=== PATIENT | male | born 1960 | race Caucasian/White ===

== ENCOUNTER 2018-10-25 08:14 | Day surgery (SDC) | payer BC ==
[2018-10-23 17:19] VITALS: BMI 41.1
[~2018-10-25 08:14] MED LIST: LACTATED RINGERS 1,000 ML IV SCH; LIDOCAINE 1% 20 ML VIAL (10MG/ML) FOR IV START INTRADERMA PRN
[2018-10-25 08:37] VITALS: TEMP 97.3
[2018-10-25 08:40] LABS: Glucose,Whole Blood 143 mg/dL (75-99)
[2018-10-25] MEDS ORDERED: PROPOFOL 10 MG/ML 20 ML VIAL IV ONE (09:14)
[2018-10-25] MEDS ORDERED: KETAMINE 10 MG/ML 20 ML VIAL ONE (09:14)
--- NOTE | 2018-10-25 09:54 | P.PCN ---
Date of Procedure: 10/25/18 Procedure(s) Performed: Procedure: Colonoscopy. Preoperative diagnosis: Screening for neoplasia, patient has history of polyps. Postoperative diagnosis: 1. Less than ideal preparation, but no significant polyps or tumors. 2. Diverticulosis with no evidence of acute diverticulitis or strictures. 3. Low-grade internal hemorrhoids without bleeding at the time of this examination. Preparation: HalfLytely prep. Sedation: Was provided by anesthesia. Brief clinical history: The patient is a 58-year-old male who is scheduled for this evaluation for screening for neoplasia because of history of polyps. His last exam was in 2015. The patient has no abdominal complaints, bleeding or anemia. Procedure: With the patient on his left lateral decubitus position and after informed consent and adequate sedation, the perianal area was inspected and it did not show any fissures or fistulas. There were no masses felt on digital rectal examination. The Olympus CFH 190L video colonoscope was then inserted in the rectum in the usual fashion and advanced to the cecum. Unfortunately the preparation was less than ideal and there was thick fecal secretions and fecal material encountered. I was able to wash and cleanse the bowel to a great extent but not completely. The mucosa appeared healthy. There were occasional diverticular orifices seen scattered in the sigmoid and around the hepatic flexure with no evidence of acute diverticulitis or strictures. There were no significant polyps or tumors. In the sigmoid, in the vicinity of diverticular orifices, there was submucosal hemorrhages scattered and in some areas it gives the appearance of an early polypoid area but there were no significant polyps or tumors. These changes are seen in persons with history of diverticulitis but there was no evidence of acute diverticulitis or strictures. I retroflexed the endoscope in the rectum then the endoscope was withdrawn. Low-grade internal hemorrhoids were noted but there was no bleeding. The patient tolerated the procedure well. Plan: The patient was reassured. Discussed dietary measures and local care for hemorrhoids. With his less than ideal preparation today, I recommended a repeat exam in 3 years after a 2 day preparation before going to a 5-year schedule because of the finding of polyps last time. He will follow up with you as planned.
[2018-10-25 10:07] VITALS: BP 135/86; PULSE 70; RESP 18
== END 2018-10-25 10:25 | disposition home or self-care (01) ==
LOC: ORWHC2ENDO 08:14
DX: Z12.11 Encounter for screening for malignant neoplasm of colon (principal); K57.30 Diverticulosis of large intestine without perforation or abscess without bleeding; K64.8 Other hemorrhoids; Z86.010 Personal history of colon polyps; I25.10 Atherosclerotic heart disease of native coronary artery without angina pectoris; I10 Essential (primary) hypertension; E11.9 Type 2 diabetes mellitus without complications; E78.5 Hyperlipidemia, unspecified; Z86.73 Personal history of transient ischemic attack (TIA), and cerebral infarction without residual deficits; G47.33 Obstructive sleep apnea (adult) (pediatric); I25.2 Old myocardial infarction; E66.01 Morbid (severe) obesity due to excess calories; Z68.41 Body mass index [BMI] 40.0-44.9, adult; Z79.84 Long term (current) use of oral hypoglycemic drugs; Z79.1 Long term (current) use of non-steroidal anti-inflammatories (NSAID); Z79.82 Long term (current) use of aspirin; Z79.899 Other long term (current) drug therapy; Z88.8 Allergy status to other drugs, medicaments and biological substances
CPT/HCPCS: J2704; G0105; 45378